=== PATIENT | male | born 1975 | race Two or more races ===

== ENCOUNTER 2023-10-28 14:17 | Emergency (ER) | payer OTHER ==
[2023-10-28 14:26] VITALS: BMI 33.3
[2023-10-28] MEDS ORDERED: DIPHTH,PERTUSS(ACELL),TET 0.5 ML DISP.SYRIN IM ONE (15:18)
[2023-10-28] MEDS ORDERED: ACETAMINOPHEN 325 MG TABLET (FP) ONE (15:18)
[2023-10-28] MEDS: ACETAMINOPHEN 500 MG TABLET (FP) PO ONE (15:23)
[2023-10-28] MEDS: DIPHTH,PERTUSS(ACELL),TET 0.5 ML DISP.SYRIN IM ONE (15:24)
[2023-10-28] MEDS ORDERED: LIDOCAINE HCL 2% (20ML MULTI-DOSE VIAL) ONE (15:45)
[2023-10-28] MEDS: LIDOCAINE HCL 2% (50ML VIAL) SQ ONE (15:54)
[2023-10-28 16:51] VITALS: BP 169/93; PULSE 78; RESP 17; TEMP 98.4
== END 2023-10-28 17:18 | disposition home or self-care (01) ==
LOC: JER 14:17
PROC: 0XQNXZZ Repair Right Index Finger, External Approach (ICD-10-PCS; principal; 2023-10-28)
PROC: 3E0234Z Introduction of Serum, Toxoid and Vaccine into Muscle, Percutaneous Approach (ICD-10-PCS; 2023-10-28)
DX: S61.210A Laceration without foreign body of right index finger without damage to nail, initial encounter (principal); W22.8XXA Striking against or struck by other objects, initial encounter; Y99.0 Civilian activity done for income or pay; Z23 Encounter for immunization
CPT/HCPCS: 73140-TC-RT-FY; 90715; 99283-25